=== PATIENT | female | born 1960 | race Caucasian/White ===

== ENCOUNTER 2017-02-03 18:20 | Emergency (ER) | payer OTHER, MEDICAID ==
[~2017-02-03] VITALS: Ht 160 cm; Wt 84.1 kg
[2017-02-03 18:57] VITALS: BP 162/56
== END 2017-02-03 21:25 | disposition home or self-care (01) ==
LOC: ED 18:20
DX: R07.81 Pleurodynia (principal); M54.5 Low back pain; G89.29 Other chronic pain; M19.90 Unspecified osteoarthritis, unspecified site
CPT/HCPCS: J3010

== ENCOUNTER 2017-05-31 10:21 | Emergency (ER) | payer OTHER, MEDICAID ==
[2017-05-31 11:25] VITALS: BP 138/92
== END 2017-05-31 11:25 | disposition home or self-care (01) ==
LOC: ED 10:21
DX: R42 Dizziness and giddiness (principal); G89.29 Other chronic pain; M54.9 Dorsalgia, unspecified; M19.90 Unspecified osteoarthritis, unspecified site